=== PATIENT | male | born 1975 | race Caucasian/White ===

== ENCOUNTER 2019-04-29 14:22 | Emergency (ER) | payer OTHER, SELFPAY ==
[2019-04-29 14:32] VITALS: BP 148/84; PULSE 94; RESP 18; TEMP 36.3; O2SAT 97
--- NOTE | 2019-04-29 14:57 | PC.NURSE ---
provided pt with water and oj to drink per CIARA Goodwin's orders
[2019-04-29 15:04] LABS: Add Manual Diff / Slide Review NO; Basophils Absolute Auto 100 /uL (0-100); Basophils Percent Auto 1.3 % (0-2); Eosinophils Absolute Auto 500 /uL (0-450); Eosinophils Percent Auto 4.8 % (2-4); Hematocrit 43.4 % (41-53); Hemoglobin 15.2 g/dL (13.5-17.5); Lymphocytes Absolute Auto 1600 /uL (1100-4500); Lymphocytes Percent Auto 16.3 % (25-40); Mean Corpuscular Hemoglobin 30.6 PG (26-34); Mean Corpuscular Volume 87.3 fL (80-100); Monocytes Absolute Auto 1400 /uL (0-900); Monocytes Percent Auto 14.1 % (3-14); Neutrophils Absolute Auto 6400 /uL (1500-7000); Neutrophils Percent Auto 63.5 % (50-75); Platelet Count 283 X10^3/uL (150-400); Red Blood Cell Count 4.97 X10^6/uL (4.5-5.9); Red Cell Distribution Width 13.1 % (11.6-14.8); White Blood Cell Count 10.1 X10^3/uL (4.5-11.0)
[2019-04-29 15:10] LABS: Ur Creatinine Normal (Normal); Ur Specific Gravity Abnormal (Normal); Urine pH Normal (Normal)
[2019-04-29 15:12] LABS: Burprenorphine Negative (Negative); UR Morphine/Opiate cutoff 300 Negative (Negative); Urine Amphetamines Positive (Negative); Urine Barbiturates Negative (Negative); Urine Benzodiazepines Negative (Negative); Urine Cocaine Negative (Negative); Urine MDMA Negative (Negative); Urine Methadone Negative (Negative); Urine Methamphetamines Positive (Negative); Urine Morphine/Opi cutoff 2000 Negative (Negative); Urine Oxycodone Negative (Negative); Urine Phencyclidine Negative (Negative); Urine Tetrahydrocannabinol Positive (Negative); Urine Tricyclic Antidepressant Negative (Negative)
[2019-04-29 15:33] LABS: Amorphous Sediment Urine 1+; Bacteria Urine Few (2-10); Hyaline Casts Urine 5-10/LPF; Mucus Urine 4+ (Negative); RBC Urine 5-10/HPF (0-5/HPF); Squamous Epithelial Cell Urine 0-1 /HPF (0-5/HPF); WBC Urine 5-10/HPF (0-5/HPF)
[2019-04-29 15:34] LABS: Culture Indicated Urine Specimen Cultured
[2019-04-29 15:35] LABS: Ictotest Urine Negative (Negative)
[2019-04-29 15:37] LABS: Acetaminophen < 10 ug/mL (10-30); Alanine Aminotransferase 89 IU/L (21-72); Albumin 4.8 g/dL (3.5-5.0); Albumin Globulin Ratio 1.2 (1.0-2.8); Alkaline Phosphatase 87 U/L (38-126); Aspartate Aminotransferase 108 IU/L (17-59); BUN Creatinine Ratio 27.8 (6-22); Bilirubin Total 1.4 mg/dL (0.2-1.3); Blood Urea Nitrogen 25 mg/dL (9-20); Calcium 9.4 mg/dL (8.4-10.2); Carbon Dioxide 27 mmol/L (22-32); Chloride 99 mmol/L (98-107); Estimated Glomerular Filt Rate > 60.0 mL/min (>60); Ethanol (ETOH) < 10 mg/dL; Globulin 3.9 g/dL (1.7-4.1); Glucose 143 mg/dL (70-100); HEMOLYSIS 19 (0-50); Potassium 3.2 mmol/L (3.4-5.1); Salicylate < 1.0 mg/dL (<20); Sodium 138 mmol/L (137-145); Total Protein 8.7 g/dL (6.3-8.2)
--- NOTE | 2019-04-29 15:42 | PC.NURSE ---
pt with +UDS for meth and thc. denies meth use. reports his marijuana must have been laced. reports he has done meth in the past. denies HI/SI. Gladwin in room for assessment. Agreeable to DC as plan of care. Advised he can only be DC if he gets a cab home due to be under the influence he would be a driving risk. Will be consulting social work for transport services that can be provided home as the patient cannot pay.
[2019-04-29 15:55] LABS: Thyroid Stimulating Hormone 0.98 uIU/mL (0.47-4.68)
--- NOTE | 2019-04-29 18:59 | ED.PSYCH ---
HPI - Psych <YOSEF Rangel - Last Filed: 04/29/19 19:03> General Chief Complaint: Psychiatric Symptoms Stated Complaint: 'talking to people that are not there' Time Seen by Provider: 04/29/19 14:55 Source: patient Mode of arrival: Ambulatory Limitations: no limitations History of Present Illness HPI Narrative: The patient is a 43-year-old male current smoker who presents with a chief complaint of nausea and vomiting as well as hearing voices. He states this started after smoking marijuana she denies ago. He denies any suicidal thoughts, suicidal ideations homicidal thoughts or homicidal ideations. He states that he did used to use methamphetamine, last use 3 years ago. Denies any fevers chest pain shortness of breath. Denies any current abdominal pain nausea or vomiting on my exam. Related Data Home Medications Medication Instructions Recorded Confirmed No Known Home Medications 04/29/19 04/29/19 Allergies Allergy/AdvReac Type Severity Reaction Status Date / Time amoxicillin AdvReac Mild Pruritus Unverified 09/09/18 12:03 Review of Systems <YOSEF Rangel - Last Filed: 04/29/19 19:03> Review of Systems Narrative: GENERAL: Denies chills, fatigue, malaise, fever, sweats. HEENT: Denies sinus pain, ear pain, sore throat, difficulty swallowing, dizziness. RESPIRATORY: Denies dyspnea, cough, wheezing, hemoptysis, sputum. CARDIOVASCULAR: Denies chest pain, palpitations, orthopnea, edema, GASTROINTESTINAL: See HPI : Denies dysuria, frequency, incontinence, hematuria, urinary retention. MUSCULOSKELETAL: denies weakness, joint pain, or bony pain SKIN: Denies rash, skin lesions, or other NEUROLOGIC: Denies weakness, headache, numbness, change in speech, confusion, seizures, incoordination. PSYCHIATRIC: See HPI 12 point review of systems is negative except for those stated above PFSH <YOSEF Rangel - Last Filed: 04/29/19 19:03> Medical History Methamphetamine abuse (Acute) Social History Smoking Status: Current every day smoker Social History Smoking Status: Current every day smoker Exam <YOSEF Rangel - Last Filed: 04/29/19 19:03> Narrative Exam Narrative: GENERAL: This is a well-nourished, well-developed patient, appears jittery and anxious HEAD: Atraumatic. Normocephalic. No temporal or scalp tenderness. EYES: Pupils equal round and reactive. Extraocular motions intact. No scleral icterus. No injection or drainage. ENT: Nose without bleeding, purulent drainage or septal hematoma. Throat without erythema, tonsillar hypertrophy or exudate. Uvula midline. Airway patent. NECK: Trachea midline. No JVD or lymphadenopathy. Supple, nontender, no meningeal signs. CARDIOVASCULAR: Regular rate and rhythm without murmurs, gallops, or rubs. RESPIRATORY: Clear to auscultation. Breath sounds equal bilaterally. No wheezes, rales, or rhonchi. No cough. No increased respiratory effort. No accessory muscle use. GASTROINTESTINAL: Abdomen soft, non-tender, nondistended. No hepato-splenomegaly, or palpable masses. No guarding. Active bowel sounds all 4 quadrants. EXTREMITIES: No clubbing, cyanosis, or edema. No joint tenderness, effusion, or edema noted. BACK: Nontender without deformity or crepitance. No flank tenderness. NEURO: AOx3. SKIN: No rash or erythema visible skin. Psych: Tangential some pressured speech denies SI or HI Initial Vital Signs Initial Vital Signs: Vital Signs Temperature 97.4 F L 04/29/19 14:32 Pulse Rate 94 H 04/29/19 14:32 Respiratory Rate 18 04/29/19 14:32 Blood Pressure 148/84 H 04/29/19 14:32 Pulse Oximetry 97 04/29/19 14:32 <Alexandra Ragland DO - Last Filed: 04/29/19 20:19> Initial Vital Signs Initial Vital Signs: Vital Signs Temperature 97.4 F L 04/29/19 14:32 Pulse Rate 94 H 04/29/19 14:32 Respiratory Rate 18 04/29/19 14:32 Blood Pressure 148/84 H 04/29/19 14:32 Pulse Oximetry 97 04/29/19 14:32 Course <YOSEF Rangel - Last Filed: 04/29/19 19:03> Orders Ordered: ED Orders 04/29/19 14:20 Ictotest Urine Stat Urine Culture Stat Urine Drug Screen, Rapid Stat Urine Microscopic Stat 04/29/19 14:55 Acetaminophen Stat Complete Blood Count AUTO DIFF Stat Comprehensive Metabolic Panel Stat Ethanol (ETOH) Stat Salicylate Stat Thyroid Stimulating Hormone Stat 04/29/19 14:57 Consult to Senior Software Systems Engineer Stat Vital Signs Vital signs: Vital Signs - 8 hr 04/29/19 14:32 Temperature 97.4 F L Pulse Rate 94 H Respiratory Rate 18 Blood Pressure 148/84 H Pulse Oximetry 97 <Alexandra Ragland DO - Last Filed: 04/29/19 20:19> Orders Ordered: ED Orders 04/29/19 14:20 Ictotest Urine Stat Urine Culture Stat Urine Drug Screen, Rapid Stat Urine Microscopic Stat 04/29/19 14:55 Acetaminophen Stat Complete Blood Count AUTO DIFF Stat Comprehensive Metabolic Panel Stat Ethanol (ETOH) Stat Salicylate Stat Thyroid Stimulating Hormone Stat 04/29/19 14:57 Consult to Senior Software Systems Engineer Stat Vital Signs Vital signs: Vital Signs - 8 hr 04/29/19 14:32 Temperature 97.4 F L Pulse Rate 94 H Respiratory Rate 18 Blood Pressure 148/84 H Pulse Oximetry 97 [facility] - Psych <DEBI RangelBC - Last Filed: 04/29/19 19:03> Lab Data Result diagrams: 04/29/19 14:55 04/29/19 14:55 Labs: Lab Results 04/29/19 04/29/19 04/29/19 Range/Units 14:20 14:20 14:55 WBC 10.1 (4.5-11.0) X10^3/uL RBC 4.97 (4.5-5.9) X10^6/uL Hgb 15.2 (13.5-17.5) g/dL Hct 43.4 (41-53) % MCV 87.3 (80-100) fL MCH 30.6 (26-34) PG MCHC 35.0 (30-36) % RDW 13.1 (11.6-14.8) % Plt Count 283 (150-400) X10^3/uL Neut % (Auto) 63.5 (50-75) % Lymph % (Auto) 16.3 L (25-40) % [place] % (Auto) 14.1 H (3-14) % Eos % (Auto) 4.8 H (2-4) % Baso % (Auto) 1.3 (0-2) % Neut # (Auto) 6400 (0962-8758) /uL Lymph # (Auto) 1600 (6938-3950) /uL [place] # (Auto) 1400 H (0-900) /uL Eos # (Auto) 500 H (0-450) /uL Baso # (Auto) 100 (0-100) /uL Sodium (137-145) mmol/L Potassium (3.4-5.1) mmol/L Chloride (98-107) mmol/L Carbon Dioxide (22-32) mmol/L BUN (9-20) mg/dL Creatinine (0.66-1.25) mg/dL Estimated GFR (>60) mL/min BUN/Creatinine Ratio (6-22) Glucose (70-100) mg/dL Calcium (8.4-10.2) mg/dL Total Bilirubin (0.2-1.3) mg/dL AST (17-59) IU/L ALT (21-72) IU/L Alkaline Phosphatase (38-126) U/L Total Protein (6.3-8.2) g/dL Albumin (3.5-5.0) g/dL Globulin (1.7-4.1) g/dL Albumin/Globulin Ratio (1.0-2.8) TSH (0.47-4.68) uIU/mL Urine Ictotest Negative (Negative) Urine RBC 5-10/hpf H (0-5/HPF) Urine WBC 5-10/hpf H (0-5/HPF) Ur Squamous Epith Cells 0-1 /hpf (0-5/HPF) Amorphous Sediment 1+ Urine Bacteria Few (2-10) H (None) Hyaline Casts 5-10/lpf (None) Urine Mucus 4+ H (Negative) Ur Culture Indicated? Specimen cultured Salicylates (<20) mg/dL Urine Opiates Screen Negative (Negative) POC Urine Buprenorphine Negative (Negative) U Morph 300 ng/mL cutoff Negative (Negative) Ur Oxycodone Screen Negative (Negative) Urine Methadone Screen Negative (Negative) Acetaminophen (10-30) ug/mL Ur Barbiturates Screen Negative (Negative) U Tricyclic Antidepress Negative (Negative) Ur Phencyclidine Scrn Negative (Negative) Ur Amphetamines Screen Positive H (Negative) U Methamphetamines Scrn Positive H (Negative) Ur MDMA Scrn (Ecstasy) Negative (Negative) U Benzodiazepines Scrn Negative (Negative) Urine Cocaine Screen Negative (Negative) U Marijuana (THC) Screen Positive H (Negative) Ethyl Alcohol ( - 10) mg/dL 04/29/19 04/29/19 04/29/19 Range/Units 14:55 14:55 14:55 WBC (4.5-11.0) X10^3/uL RBC (4.5-5.9) X10^6/uL Hgb (13.5-17.5) g/dL Hct (41-53) % MCV (80-100) fL MCH (26-34) PG MCHC (30-36) % RDW (11.6-14.8) % Plt Count (150-400) X10^3/uL Neut % (Auto) (50-75) % Lymph % (Auto) (25-40) % [place] % (Auto) (3-14) % Eos % (Auto) (2-4) % Baso % (Auto) (0-2) % Neut # (Auto) (4906-0330) /uL Lymph # (Auto) (7388-5935) /uL [place] # (Auto) (0-900) /uL Eos # (Auto) (0-450) /uL Baso # (Auto) (0-100) /uL Sodium 138 (137-145) mmol/L Potassium 3.2 L (3.4-5.1) mmol/L Chloride 99 (98-107) mmol/L Carbon Dioxide 27 (22-32) mmol/L BUN 25 H (9-20) mg/dL Creatinine 0.90 (0.66-1.25) mg/dL Estimated GFR > 60.0 (>60) mL/min BUN/Creatinine Ratio 27.8 H (6-22) Glucose 143 H (70-100) mg/dL Calcium 9.4 (8.4-10.2) mg/dL Total Bilirubin 1.4 H (0.2-1.3) mg/dL AST 108 H (17-59) IU/L ALT 89 H (21-72) IU/L Alkaline Phosphatase 87 (38-126) U/L Total Protein 8.7 H (6.3-8.2) g/dL Albumin 4.8 (3.5-5.0) g/dL Globulin 3.9 (1.7-4.1) g/dL Albumin/Globulin Ratio 1.2 (1.0-2.8) TSH 0.98 (0.47-4.68) uIU/mL Urine Ictotest (Negative) Urine RBC (0-5/HPF) Urine WBC (0-5/HPF) Ur Squamous Epith Cells (0-5/HPF) Amorphous Sediment Urine Bacteria (None) Hyaline Casts (None) Urine Mucus (Negative) Ur Culture Indicated? Salicylates < 1.0 (<20) mg/dL Urine Opiates Screen (Negative) POC Urine Buprenorphine (Negative) U Morph 300 ng/mL cutoff (Negative) Ur Oxycodone Screen (Negative) Urine Methadone Screen (Negative) Acetaminophen < 10 L (10-30) ug/mL Ur Barbiturates Screen (Negative) U Tricyclic Antidepress (Negative) Ur Phencyclidine Scrn (Negative) Ur Amphetamines Screen (Negative) U Methamphetamines Scrn (Negative) Ur MDMA Scrn (Ecstasy) (Negative) U Benzodiazepines Scrn (Negative) Urine Cocaine Screen (Negative) U Marijuana (THC) Screen (Negative) Ethyl Alcohol < 10 Cancelled ( - 10) mg/dL Urine Dip Bedside Urine Glucose Negative Bedside Urine Bilirubin ++ 2 Bedside Urine Ketone + 15 Urine Specific [place] 1.025 Bedside Urine Occult Blood +/- Bedside Urine pH 6.0 Bedside Urine Protein + 30 Bedside Urine Urobilinogen +/- 1mg Bedside Urine Nitrite - Negative Bedside Urine Leukocytes +/- 15 Esterase MDM Narrative Medical decision making narrative: The patient is a 43-year-old male who presents with a chief complaint of hearing voices as well as slight nausea and vomiting. He has good p.o. intake on exam. The patient denies any methamphetamine use, but had a positive urine test for methamphetamine. I attempted to discuss this with him, but he stated that he had last used meth 3 years ago and states that his marijuana that he smoked 2 days ago most of in least. He denies any SI or HI. He has multiple request to go. The patient is GCS 15, denies any thoughts of hurting himself or anybody else but appears a bit spastic on exam, and I do not feel comfortable with him driving home. Thus a cab was called. The patient requested to leave prior to his labs resulting. Encourage PCP follow-up coming back to the emergency department for any acute concerns. <Alexandra Ragland, - Last Filed: 04/29/19 20:19> Lab Data Labs: Lab Results 04/29/19 04/29/19 04/29/19 Range/Units 14:20 14:20 14:55 WBC 10.1 (4.5-11.0) X10^3/uL RBC 4.97 (4.5-5.9) X10^6/uL Hgb 15.2 (13.5-17.5) g/dL Hct 43.4 (41-53) % MCV 87.3 (80-100) fL MCH 30.6 (26-34) PG MCHC 35.0 (30-36) % RDW 13.1 (11.6-14.8) % Plt Count 283 (150-400) X10^3/uL Neut % (Auto) 63.5 (50-75) % Lymph % (Auto) 16.3 L (25-40) % [place] % (Auto) 14.1 H (3-14) % Eos % (Auto) 4.8 H (2-4) % Baso % (Auto) 1.3 (0-2) % Neut # (Auto) 6400 (4399-3800) /uL Lymph # (Auto) 1600 (0605-2228) /uL [place] # (Auto) 1400 H (0-900) /uL Eos # (Auto) 500 H (0-450) /uL Baso # (Auto) 100 (0-100) /uL Sodium (137-145) mmol/L Potassium (3.4-5.1) mmol/L Chloride (98-107) mmol/L Carbon Dioxide (22-32) mmol/L BUN (9-20) mg/dL Creatinine (0.66-1.25) mg/dL Estimated GFR (>60) mL/min BUN/Creatinine Ratio (6-22) Glucose (70-100) mg/dL Calcium (8.4-10.2) mg/dL Total Bilirubin (0.2-1.3) mg/dL AST (17-59) IU/L ALT (21-72) IU/L Alkaline Phosphatase (38-126) U/L Total Protein (6.3-8.2) g/dL Albumin (3.5-5.0) g/dL Globulin (1.7-4.1) g/dL Albumin/Globulin Ratio (1.0-2.8) TSH (0.47-4.68) uIU/mL Urine Ictotest Negative (Negative) Urine RBC 5-10/hpf H (0-5/HPF) Urine WBC 5-10/hpf H (0-5/HPF) Ur Squamous Epith Cells 0-1 /hpf (0-5/HPF) Amorphous Sediment 1+ Urine Bacteria Few (2-10) H (None) Hyaline Casts 5-10/lpf (None) Urine Mucus 4+ H (Negative) Ur Culture Indicated? Specimen cultured Salicylates (<20) mg/dL Urine Opiates Screen Negative (Negative) POC Urine Buprenorphine Negative (Negative) U Morph 300 ng/mL cutoff Negative (Negative) Ur Oxycodone Screen Negative (Negative) Urine Methadone Screen Negative (Negative) Acetaminophen (10-30) ug/mL Ur Barbiturates Screen Negative (Negative) U Tricyclic Antidepress Negative (Negative) Ur Phencyclidine Scrn Negative (Negative) Ur Amphetamines Screen Positive H (Negative) U Methamphetamines Scrn Positive H (Negative) Ur MDMA Scrn (Ecstasy) Negative (Negative) U Benzodiazepines Scrn Negative (Negative) Urine Cocaine Screen Negative (Negative) U Marijuana (THC) Screen Positive H (Negative) Ethyl Alcohol ( - 10) mg/dL 04/29/19 04/29/19 04/29/19 Range/Units 14:55 14:55 14:55 WBC (4.5-11.0) X10^3/uL RBC (4.5-5.9) X10^6/uL Hgb (13.5-17.5) g/dL Hct (41-53) % MCV (80-100) fL MCH (26-34) PG MCHC (30-36) % RDW (11.6-14.8) % Plt Count (150-400) X10^3/uL Neut % (Auto) (50-75) % Lymph % (Auto) (25-40) % [place] % (Auto) (3-14) % Eos % (Auto) (2-4) % Baso % (Auto) (0-2) % Neut # (Auto) (3875-4084) /uL Lymph # (Auto) (0405-7733) /uL [place] # (Auto) (0-900) /uL Eos # (Auto) (0-450) /uL Baso # (Auto) (0-100) /uL Sodium 138 (137-145) mmol/L Potassium 3.2 L (3.4-5.1) mmol/L Chloride 99 (98-107) mmol/L Carbon Dioxide 27 (22-32) mmol/L BUN 25 H (9-20) mg/dL Creatinine 0.90 (0.66-1.25) mg/dL Estimated GFR > 60.0 (>60) mL/min BUN/Creatinine Ratio 27.8 H (6-22) Glucose 143 H (70-100) mg/dL Calcium 9.4 (8.4-10.2) mg/dL Total Bilirubin 1.4 H (0.2-1.3) mg/dL AST 108 H (17-59) IU/L ALT 89 H (21-72) IU/L Alkaline Phosphatase 87 (38-126) U/L Total Protein 8.7 H (6.3-8.2) g/dL Albumin 4.8 (3.5-5.0) g/dL Globulin 3.9 (1.7-4.1) g/dL Albumin/Globulin Ratio 1.2 (1.0-2.8) TSH 0.98 (0.47-4.68) uIU/mL Urine Ictotest (Negative) Urine RBC (0-5/HPF) Urine WBC (0-5/HPF) Ur Squamous Epith Cells (0-5/HPF) Amorphous Sediment Urine Bacteria (None) Hyaline Casts (None) Urine Mucus (Negative) Ur Culture Indicated? Salicylates < 1.0 (<20) mg/dL Urine Opiates Screen (Negative) POC Urine Buprenorphine (Negative) U Morph 300 ng/mL cutoff (Negative) Ur Oxycodone Screen (Negative) Urine Methadone Screen (Negative) Acetaminophen < 10 L (10-30) ug/mL Ur Barbiturates Screen (Negative) U Tricyclic Antidepress (Negative) Ur Phencyclidine Scrn (Negative) Ur Amphetamines Screen (Negative) U Methamphetamines Scrn (Negative) Ur MDMA Scrn (Ecstasy) (Negative) U Benzodiazepines Scrn (Negative) Urine Cocaine Screen (Negative) U Marijuana (THC) Screen (Negative) Ethyl Alcohol < 10 Cancelled ( - 10) mg/dL Urine Dip Bedside Urine Glucose Negative Bedside Urine Bilirubin ++ 2 Bedside Urine Ketone + 15 Urine Specific [place] 1.025 Bedside Urine Occult Blood +/- Bedside Urine pH 6.0 Bedside Urine Protein + 30 Bedside Urine Urobilinogen +/- 1mg Bedside Urine Nitrite - Negative Bedside Urine Leukocytes +/- 15 Esterase Discharge Plan Departure Patient Disposition: Home Clinical Impression: Drug-induced psychotic disorder Qualifiers: Complication of substance-induced condition: with hallucinations Qualified Code(s): F19.951 - Other psychoactive substance use, unspecified with psychoactive substance-induced psychotic disorder with hallucinations Discharge Date/Time: 04/29/19 16:21 Instructions: DI for Drug Abuse and Drug Addiction, DI for Psychosis Activity Restrictions/Additional Instructions: I have given contact information to the health human resources services specialist. They can help you find a primary care provider. Please come back to emergency department for any acute concerns such as wanting to hurt herself or anybody else. Please do not use methamphetamine or other illicit drugs. This can contribute to your hallucinations Prescriptions: No Action No Known Home Medications RF: 0 Referrals: [facility] [Outside] Stand Alone Forms: Work Release Note
== END 2019-04-29 16:21 | disposition home or self-care (01) ==
PROVIDERS: Emergency Medicine; Emergency Provider Nurse Practitioner Family
DX: F19.951 Other psychoactive substance use, unspecified with psychoactive substance-induced psychotic disorder with hallucinations (principal)
CPT/HCPCS: 80053; 80305; 80320; 80329; 81003; 81015; 84443; 85025; 87077; 87086; 99282; 99283; G0480